=== PATIENT | male | born 1980 | race African-American/Black ===

== ENCOUNTER 2019-06-19 18:28 | Inpatient (IN) | payer OTHER ==
[~2019-06-19] VITALS: Ht 162.6 cm; Wt 56.8 kg
[~2019-06-19 18:28] MED LIST: CHOL100018 PO; FERR-89 PO; PERCT PO
[2019-06-19] MEDS ORDERED: FOLI1 PO (19:36)
[2019-06-19] MEDS ORDERED: HYDR500 PO (19:36)
[2019-06-19] MEDS ORDERED: OMEP20 PO (19:36)
[2019-06-19] MEDS ORDERED: HYDR-4061 PO (19:36)
[2019-06-19] MEDS ORDERED: HYDROmorphone 2 MG/ML SYRINGE IVP ONE ×3 (20:45→22:30)
[2019-06-19] MEDS ORDERED: SODIUM CHLORIDE 0.9% 1,000 ML IV ONE ×3 (20:45→22:00)
[2019-06-19 21:21] LABS: BASOPHILS % (AUTO) 0.9 % (0.0-2.0); HEMATOCRIT 29.1 % (41-53); HEMOGLOBIN 10.4 g/dL (13.5-17.5); LYMPHOCYTES # (AUTO) 2.7 K/uL (1.0-4.8); LYMPHOCYTES % (AUTO) 18.5 % (22.0-44.0); MEAN CORPUSCULAR HEMOGLOBIN 38.3 pg (26.0-34.0); MEAN CORPUSCULAR HGB CONC 35.7 G/dL (31.0-37.0); MEAN CORPUSCULAR VOLUME 107 fL (80-100); MONOCYTES # (AUTO) 1.7 K/uL (0.1-1.0); MONOCYTES % (AUTO) 11.6 % (2.0-9.0); PLATELET COUNT (AUTO) 344 K/uL (150-450); RED BLOOD CELL COUNT(AUTO) 2.71 MIL/uL (4.50-5.90); RED CELL DISTRIBUTION WIDTH 18.7 % (11.5-14.5); RETICULOCYTE % (AUTO) 10.3 % (0.5-2.3)
[2019-06-19 21:48] LABS: PLATELET MORPHOLOGY COMMENT LARGE PLTS PRESENT
[2019-06-20] VITALS (9 sets, daily range): BP systolic 99–122; BP diastolic 56–74
[2019-06-20] MEDS ORDERED: HYDROmorphone 2 MG/ML SYRINGE IVP ONE ×2 (00:15→06:00)
[2019-06-20] MEDS ORDERED: DiphenhydrAMINE HCL 50 MG/ML VIAL IVP ONE (00:15)
[2019-06-20] MEDS ORDERED: ACETAMINOPHEN 325 MG TABLET PO PRN ×2 (01:45→08:00)
[2019-06-20] MEDS ORDERED: 0.9% SODIUM CHLORIDE 10 ML SYRINGE IVP PRN (01:45)
[2019-06-20] MEDS ORDERED: ONDANSETRON HCL 4 MG/2 ML VIAL IVP PRN ×2 (01:45→08:00)
[2019-06-20] MEDS ORDERED: SODIUM CHLORIDE 0.9% 1,000 ML IV ONE (02:00)
[2019-06-20] MEDS: SODIUM CHLORIDE 0.9% 1,000 ML IV SCH ×2 (07:45→16:08)
[2019-06-20] MEDS: HYDROmorphone 2 MG/ML SYRINGE IVP PRN ×6 (07:53→23:18)
[2019-06-20] MEDS ORDERED: MAGNESIUM HYDROXIDE SUSPENSION 30 ML UDCUP PO PRN (08:00)
[2019-06-20] MEDS ORDERED: BISACODYL 10 MG RECTAL RECTAL SUPPOSITORY PR PRN (08:00)
[2019-06-20] MEDS ORDERED: ZOLPIDEM TARTRATE 5 MG TABLET PO PRN (08:00)
[2019-06-20] MEDS: HEPARIN SODIUM,PORCINE 5,000 UNITS/ML VIAL SQ SCH ×2 (08:00→16:00)
[2019-06-20] MEDS ORDERED: HYDROCODONE/ACETAMINOPHEN 5-325 MG TABLET PO PRN (08:00)
[2019-06-20] MEDS: DOCUSATE SODIUM 100 MG CAPSULE PO SCH ×2 (11:09→19:51)
[2019-06-20] MEDS: HYDROXYUREA 500 MG CAPSULE PO SCH (11:09)
[2019-06-20] MEDS: FOLIC ACID 1 MG TABLET PO SCH (11:09)
[2019-06-20] MEDS: PANTOPRAZOLE SODIUM 40 MG DR TABLET PO SCH (11:09)
[2019-06-20 15:16] LABS: APPEARANCE,URINE CLEAR (CLEAR); BILIRUBIN,URINE NEGATIVE (NEGATIVE); GLUCOSE, URINE (UA) NEGATIVE (NEGATIVE); KETONES,URINE NEGATIVE (NEGATIVE); LEUKOCYTE ESTERASE ,URINE NEGATIVE (NEGATIVE); NITRATE,URINE NEGATIVE (NEGATIVE); OCCULT BLOOD,URINE NEGATIVE (NEGATIVE); PH,URINE 6.5 (5.0-8.0); PROTEIN,URINE NEGATIVE (NEGATIVE)
[2019-06-20 15:32] LABS: BACTERIA,URINE None Seen /HPF (None Seen); RBC,URINE None Seen /HPF (0-2); SQUAMOUS EPITHELIAL CELL,UR None Seen /LPF (None Seen); WBC,URINE None Seen /HPF (0-5)
[2019-06-20] MEDS ORDERED: INFLUENZA VIRUS VACCINE QVS 2019-20 (3YR+)/PF 60 MCG/0.5 ML SYRINGE IM ONE (19:00)
[2019-06-20] MEDS ORDERED: DiphenhydrAMINE HCL 25 MG CAPSULE PO ONE (21:15)
[2019-06-21] MEDS: HYDROmorphone 2 MG/ML SYRINGE IVP PRN ×7 (03:27→22:47)
[2019-06-21] MEDS: SODIUM CHLORIDE 0.9% 1,000 ML IV SCH ×2 (03:27→17:23)
[2019-06-21 05:55] VITALS: BP 105/65
[2019-06-21 07:37] VITALS: BP 107/65
[2019-06-21] MEDS: HEPARIN SODIUM,PORCINE 5,000 UNITS/ML VIAL SQ SCH ×3 (08:00→16:00)
[2019-06-21] MEDS: FOLIC ACID 1 MG TABLET PO SCH (08:01)
[2019-06-21] MEDS: DOCUSATE SODIUM 100 MG CAPSULE PO SCH ×2 (08:01→20:39)
[2019-06-21] MEDS: PANTOPRAZOLE SODIUM 40 MG DR TABLET PO SCH (08:01)
[2019-06-21] MEDS: HYDROXYUREA 500 MG CAPSULE PO SCH (08:04)
[2019-06-21 11:46] VITALS: BP 112/57
[2019-06-21 15:38] VITALS: BP 101/67
[2019-06-21] MEDS ORDERED: HYDROCODONE/ACETAMINOPHEN 5-325 MG TABLET PO PRN (18:00)
[2019-06-21 20:27] VITALS: BP 100/69
[2019-06-22 00:33] VITALS: BP 112/67
[2019-06-22] MEDS: HYDROmorphone 2 MG/ML SYRINGE IVP PRN (03:25)
[2019-06-22 05:42] LABS: BASOPHILS % (AUTO) 1.2 % (0.0-2.0); EOSINOPHILS % (AUTO) 10.4 % (1.0-6.0); HEMOGLOBIN 9.3 g/dL (13.5-17.5); LYMPHOCYTES # (AUTO) 2.2 K/uL (1.0-4.8); LYMPHOCYTES % (AUTO) 20.9 % (22.0-44.0); MEAN CORPUSCULAR HEMOGLOBIN 38.2 pg (26.0-34.0); MEAN CORPUSCULAR HGB CONC 35.8 G/dL (31.0-37.0); MEAN CORPUSCULAR VOLUME 107 fL (80-100); MONOCYTES # (AUTO) 1.1 K/uL (0.1-1.0); MONOCYTES % (AUTO) 10.1 % (2.0-9.0); NEUTROPHILS % (AUTO) 57.4 % (40.0-70.0); PLATELET COUNT (AUTO) 301 K/uL (150-450); RED BLOOD CELL COUNT(AUTO) 2.43 MIL/uL (4.50-5.90); RED CELL DISTRIBUTION WIDTH 18.2 % (11.5-14.5)
[2019-06-22 05:48] VITALS: BP 101/61
[2019-06-22 07:25] LABS: PLATELET MORPHOLOGY COMMENT GIANT PLTS PRESENT
[2019-06-22 07:40] VITALS: BP 100/62
[2019-06-22] MEDS: HEPARIN SODIUM,PORCINE 5,000 UNITS/ML VIAL SQ SCH ×2 (08:00)
[2019-06-22] MEDS: PANTOPRAZOLE SODIUM 40 MG DR TABLET PO SCH (08:10)
[2019-06-22] MEDS: FOLIC ACID 1 MG TABLET PO SCH (08:10)
[2019-06-22] MEDS: HYDROXYUREA 500 MG CAPSULE PO SCH (08:10)
[2019-06-22] MEDS: DOCUSATE SODIUM 100 MG CAPSULE PO SCH (08:10)
[2019-06-22] MEDS: SODIUM CHLORIDE 0.9% 1,000 ML IV SCH (08:13)
[2019-06-22] MEDS ORDERED: OMEPRAZOLE 20 MG CAPSULE PO SCH (09:00)
[2019-06-22] MEDS ORDERED: HYDR-4061 PO (11:01)
== END 2019-06-22 11:50 | disposition home or self-care (01) | DRG 662 ==
LOC: EMS 18:30 → 6N 06-20 01:00 → 4E 06-21 18:00
PROVIDERS: ADMIT Internal Medicine; ATTEND Internal Medicine
DX: D57.00 Hb-SS disease with crisis, unspecified (principal); R65.10 Systemic inflammatory response syndrome (SIRS) of non-infectious origin without acute organ dysfunction; D64.9 Anemia, unspecified; Z87.11 Personal history of peptic ulcer disease; Z88.1 Allergy status to other antibiotic agents; Z91.013 Allergy to seafood; Z28.21 Immunization not carried out because of patient refusal
CPT/HCPCS: 85045; 96374; 96375; 96376; G0378; J1170; J1200; J1644; J7030